=== PATIENT | female | born 1970 ===

== ENCOUNTER 2019-04-28 16:49 | Emergency (ER) | payer OTHER ==
[~2019-04-28] VITALS: Ht 177.8 cm; Wt 68.0 kg
[~2019-04-28 16:49] MED LIST: ACET-704 PO; FOLI1TAB16 PO; GABA300C18 PO; INSU100C4 SQ; INSU100V13 SQ; THIA100T57 PO; TOPI100T8 PO; TRAZ-86 PO; TRAZ300T2 PO; VENL75TA PO
[2019-04-28] MEDS ORDERED: IV NORMAL SALINE 1000ML BAG 1,000 ML IV ONE (17:00)
--- NOTE | 2019-04-28 17:05 | PHYS DOC ---
Past Medical History Past Medical History: Diabetes-Type I, Pancreatitis, Seizure ("pseudoseizure") (EDILIA JONES DO) Past Surgical History: Hysterectomy, Other Additional Past Surgical Histo: PANCREASE REMOVED; hernia repairs x 4 (EDILIA JONES DO) Smoking: Less than 1pk/day (06/13 to 06/11) Alcohol Use: Heavy Drug Use: Benzodiazepine, Marijuana (EDILIA JONES DO) Adult General Chief Complaint Chief Complaint: SEIZURE HPI HPI Patient is a 48 y/o female with a history of pseudoseizures, DM Type 1, pancreatic transplant, breast CA, who presents to the ED with a seizure prior to arrival. Seizure was witnessed, lasted 1 minute and pt endorses LOC. She states she has recently been dealing with a UTI w/ a 101 F fever and had 1.5 alcohol drinks prior to event. She says after drinking she started getting "tunnel vision" and slowly blacked out. Pt endorses that this feels like her prodromal seizure symptoms. Her previous seizure was last week and they usually occur every 4-5 months. They have been occurring more frequently due to her increased stress at her new job. Denies nausea, vomiting, diarrhea, CP, SOB. (EDILIA JONES DO) Review of Systems Review of Systems Constitutional: Reports fever Eyes: Denies redness or eye pain HENT: Denies nasal congestion or sore throat Respiratory: Denies cough or shortness of breath Cardiovascular: Denies chest pain or palpitations GI: Denies abdominal pain, nausea, or vomiting : Reports dysuria (recent UTI diagnosis) Musculoskeletal: Denies back pain or joint pain Integument: Denies rash or skin lesions Neurologic: Reports seizure w/ LOC Complete systems were reviewed and found to be within normal limits, except as documented in this note. (EDILIA JONES DO) Current Medications Current Medications Current Medications Medications (Trade) Dose Ordered Sig/Anna Start Time Stop Time Status Last Admin Dose Admin Dexamethasone Sodium Phosphate (Decadron) 20 mg STK-MED ONCE 04/28/19 17:36 04/28/19 17:37 DC Diphenhydramine HCl (Benadryl) 25 mg 1X ONCE 04/28/19 18:00 04/28/19 18:01 DC 04/28/19 17:38 25 MG Ondansetron HCl (Zofran) 4 mg 1X ONCE 04/28/19 17:15 04/28/19 17:16 DC 04/28/19 17:27 4 MG Sodium Chloride 1,000 ml @ 1,000 mls/hr 1X ONCE 04/28/19 17:00 04/28/19 17:59 DC 04/28/19 17:21 1,000 MLS/HR (ARYAN RUIZ MD) Allergies Allergies Allergies Coded Allergies Type Severity Reaction Last Updated Verified Sulfa (Sulfonamide Antibiotics) Allergy Intermediate 07/14/15 Yes latex Allergy Intermediate 07/14/15 Yes ondansetron Allergy Mild RASH/HIVES 04/28/19 Yes (ARYAN RUIZ MD) Physical Exam Physical Exam Constitutional: Well developed, well nourished, no acute distress, non-toxic appearance HENT: Normocephalic, atraumatic, oropharynx moist, tongue normal Eyes: PERRL, EOMI, conjunctiva normal, no discharge Cardiovascular: Heart rate normal, regular rhythm Lungs & Thorax: Bilateral breath sounds clear to auscultation, no wheezing Abdomen: Soft, no tenderness Skin: Warm, dry, no erythema, no rash Extremities: No tenderness, ROM intact, no edema Neurologic: Alert and oriented X 3, normal motor function, normal sensory function, no focal deficits noted, CN II-XI intact Psychologic: Affect normal, judgement normal (EDILIA JONES DO) Current Patient Data Vital Signs Vital Signs Date Time Temp Pulse Resp B/P (MAP) Pulse Ox O2 Delivery O2 Flow Rate FiO2 04/28/19 16:49 97.9 68 20 125/68 (87) 99 Room Air 97.9 (ARYAN RUIZ MD) Lab Values Laboratory Tests Test 04/28/19 17:24 04/28/19 17:31 04/28/19 18:05 White Blood Count 10.8 x10^3/uL (4.0-11.0) Red Blood Count 5.00 x10^6/uL (3.50-5.40) Hemoglobin 15.5 g/dL (12.0-15.5) Hematocrit 46.6 % (36.0-47.0) Mean Corpuscular Volume 93 fL (79-100) Mean Corpuscular Hemoglobin 31 pg (25-35) Mean Corpuscular Hemoglobin Concent 33 g/dL (31-37) Red Cell Distribution Width 13.8 % (11.5-14.5) Platelet Count 225 x10^3/uL (140-400) Neutrophils (%) (Auto) 65 % (31-73) Lymphocytes (%) (Auto) 24 % (24-48) Monocytes (%) (Auto) 4 % (0-9) Eosinophils (%) (Auto) 6 % (0-3) H Basophils (%) (Auto) 1 % (0-3) Neutrophils # (Auto) 7.0 x10^3/uL (1.8-7.7) Lymphocytes # (Auto) 2.7 x10^3/uL (1.0-4.8) Monocytes # (Auto) 0.5 x10^3/uL (0.0-1.1) Eosinophils # (Auto) 0.7 x10^3/uL (0.0-0.7) Basophils # (Auto) 0.1 x10^3/uL (0.0-0.2) Lactic Acid Level 3.1 mmol/L (0.4-2.0) H Ethyl Alcohol Level 10 mg/dL (0-10) Urine Collection Type Unknown Urine Color [place] Urine Clarity Cloudy Urine pH Urine Specific [place] Urine Protein mg/dL (NEG-TRACE) Urine Glucose (UA) mg/dL (NEG) Urine Ketones (Stick) mg/dL (NEG) Urine Blood (NEG) Urine Nitrite (NEG) Urine Bilirubin (NEG) Urine Urobilinogen Dipstick mg/dL (0.2 mg/dL) Urine Leukocyte Esterase (NEG) Urine RBC Occ /HPF (0-2) Urine WBC 1-4 /HPF (0-4) Urine Squamous Epithelial Cells Mod /LPF Urine Bacteria Few /HPF (0-FEW) Urine Mucus Mod /LPF Urine Opiates Screen Pos (NEG) Urine Methadone Screen Neg (NEG) Urine Barbiturates Neg (NEG) Urine Phencyclidine Screen Neg (NEG) Urine Amphetamine/Methamphetamine Neg (NEG) Urine Benzodiazepines Screen Pos (NEG) Urine Cocaine Screen Neg (NEG) Urine Cannabinoids Screen Pos (NEG) Urine Ethyl Alcohol Pos (NEG) Sodium Level 140 mmol/L (136-145) Potassium Level 4.5 mmol/L (3.5-5.1) Chloride Level 103 mmol/L (98-107) Carbon Dioxide Level 25 mmol/L (21-32) Anion Gap 12 (6-14) Blood Urea Nitrogen 14 mg/dL (7-20) Creatinine 1.0 mg/dL (0.6-1.0) Estimated GFR (Cockcroft-Gault) 59.7 BUN/Creatinine Ratio 14 (6-20) Glucose Level 155 mg/dL (70-99) H Calcium Level 8.9 mg/dL (8.5-10.1) Magnesium Level 1.9 mg/dL (1.8-2.4) Total Bilirubin 0.3 mg/dL (0.2-1.0) Aspartate Amino Transferase (AST) 25 U/L (15-37) Alanine Aminotransferase (ALT) 26 U/L (14-59) Alkaline Phosphatase 100 U/L (46-116) Creatine Kinase 76 U/L (26-192) Total Protein 7.4 g/dL (6.4-8.2) Albumin 3.7 g/dL (3.4-5.0) Albumin/Globulin Ratio 1.0 (1.0-1.7) Laboratory Tests 04/28/19 17:24 Laboratory Tests 04/28/19 18:05 (ARYAN RUIZ MD) Lab Values Laboratory Tests Test 04/28/19 17:24 04/28/19 17:31 04/28/19 18:05 White Blood Count 10.8 x10^3/uL (4.0-11.0) Red Blood Count 5.00 x10^6/uL (3.50-5.40) Hemoglobin 15.5 g/dL (12.0-15.5) Hematocrit 46.6 % (36.0-47.0) Mean Corpuscular Volume 93 fL (79-100) Mean Corpuscular Hemoglobin 31 pg (25-35) Mean Corpuscular Hemoglobin Concent 33 g/dL (31-37) Red Cell Distribution Width 13.8 % (11.5-14.5) Platelet Count 225 x10^3/uL (140-400) Neutrophils (%) (Auto) 65 % (31-73) Lymphocytes (%) (Auto) 24 % (24-48) Monocytes (%) (Auto) 4 % (0-9) Eosinophils (%) (Auto) 6 % (0-3) H Basophils (%) (Auto) 1 % (0-3) Neutrophils # (Auto) 7.0 x10^3/uL (1.8-7.7) Lymphocytes # (Auto) 2.7 x10^3/uL (1.0-4.8) Monocytes # (Auto) 0.5 x10^3/uL (0.0-1.1) Eosinophils # (Auto) 0.7 x10^3/uL (0.0-0.7) Basophils # (Auto) 0.1 x10^3/uL (0.0-0.2) Lactic Acid Level 3.1 mmol/L (0.4-2.0) H Ethyl Alcohol Level 10 mg/dL (0-10) Urine Collection Type Unknown Urine Color [place] Urine Clarity Cloudy Urine pH Urine Specific [place] Urine Protein mg/dL (NEG-TRACE) Urine Glucose (UA) mg/dL (NEG) Urine Ketones (Stick) mg/dL (NEG) Urine Blood (NEG) Urine Nitrite (NEG) Urine Bilirubin (NEG) Urine Urobilinogen Dipstick mg/dL (0.2 mg/dL) Urine Leukocyte Esterase (NEG) Urine RBC Occ /HPF (0-2) Urine WBC 1-4 /HPF (0-4) Urine Squamous Epithelial Cells Mod /LPF Urine Bacteria Few /HPF (0-FEW) Urine Mucus Mod /LPF Urine Opiates Screen Pos (NEG) Urine Methadone Screen Neg (NEG) Urine Barbiturates Neg (NEG) Urine Phencyclidine Screen Neg (NEG) Urine Amphetamine/Methamphetamine Neg (NEG) Urine Benzodiazepines Screen Pos (NEG) Urine Cocaine Screen Neg (NEG) Urine Cannabinoids Screen Pos (NEG) Urine Ethyl Alcohol Pos (NEG) Sodium Level 140 mmol/L (136-145) Potassium Level 4.5 mmol/L (3.5-5.1) Chloride Level 103 mmol/L (98-107) Carbon Dioxide Level 25 mmol/L (21-32) Anion Gap 12 (6-14) Blood Urea Nitrogen 14 mg/dL (7-20) Creatinine 1.0 mg/dL (0.6-1.0) Estimated GFR (Cockcroft-Gault) 59.7 BUN/Creatinine Ratio 14 (6-20) Glucose Level 155 mg/dL (70-99) H Calcium Level 8.9 mg/dL (8.5-10.1) Magnesium Level 1.9 mg/dL (1.8-2.4) Total Bilirubin 0.3 mg/dL (0.2-1.0) Aspartate Amino Transferase (AST) 25 U/L (15-37) Alanine Aminotransferase (ALT) 26 U/L (14-59) Alkaline Phosphatase 100 U/L (46-116) Creatine Kinase 76 U/L (26-192) Total Protein 7.4 g/dL (6.4-8.2) Albumin 3.7 g/dL (3.4-5.0) Albumin/Globulin Ratio 1.0 (1.0-1.7) Laboratory Tests 04/28/19 17:24 Laboratory Tests 04/28/19 18:05 (EDILIA JONES DO) EKG EKG [] (EDILIA JONES DO) Radiology/Procedures Radiology/Procedures [] (EDILIA JONES DO) Course & Med Decision Making Course & Med Decision Making Pt is a 48 y/o female with a history of pseudoseizures, breast CA w/ mastectomy, DM type 1, pancreatic transplant who presents with a seizure prior to arrival. Pt endorses LOC. Pt without post-ictal state, biting of tongue, abnormal neurologic symptoms, and urinary incontinence. Patient neurologically intact. Labs obtained and pending at this time. Sign out given to Dr. Ruiz for further evaluation and final disposition. Discussed current findings and plan with patient and friend, who acknowledge understanding and agreement. (EDILIA JONES DO) Course & Med Decision Making Labs reviewed, lactic acid mildly elevated 3.1, UDS reveals benzos, opiates, THC, alcohol. No evidence of urinary tract infection. Holter lites unremarkable. Discussed discharge plan with patient she is in agreement. We'll plan for discharge at this time with return precautions provided. Recommend follow-up primary care physician in the next 24-48 hours. (ARYAN RUIZ MD) Dragon Disclaimer Dragon Disclaimer This electronic medical record was generated, in whole or in part, using a voice recognition dictation system. (EDILIA JONES DO) Departure Departure Impression: Primary Impression: Witnessed seizure-like activity Disposition: HOME, SELF-CARE Condition: IMPROVED Referrals: NO PCP (PCP) Patient Instructions: Nonepileptic Seizures-Brief Additional Instructions: Recommend follow up with PCP 3 - 5 days Return to the ER with worsening symptoms, intractable pain, fever, altered mental status Tylenol/Motrin as needed for pain EDILIA JONES DO Apr 28, 2019 17:05 ARYAN RUIZ MD Apr 28, 2019 18:42
[2019-04-28] MEDS ORDERED: ONDANSETRON PF 4 MG/2 ML VIAL. IVP ONE (17:15)
[2019-04-28 17:30] LABS: BASO # 0.1 x10^3/uL (0.0-0.2); BASO % 1 % (0-3); EOS # 0.7 x10^3/uL (0.0-0.7); EOS % 6 % (0-3); HEMATOCRIT 46.6 % (36.0-47.0); HEMOGLOBIN 15.5 g/dL (12.0-15.5); LYMPH # 2.7 x10^3/uL (1.0-4.8); LYMPH % 24 % (24-48); MEAN CORPUSCULAR HEMOGLOBIN 31 pg (25-35); MEAN CORPUSCULAR HGB CONC 33 g/dL (31-37); MEAN CORPUSCULAR VOLUME 93 fL (79-100); MONO # 0.5 x10^3/uL (0.0-1.1); MONO % 4 % (0-9); NEUT % 65 % (31-73); PLATELET COUNT 225 x10^3/uL (140-400); RED CELL DISTRIBUTION WIDTH 13.8 % (11.5-14.5); WHITE BLOOD COUNT 10.8 x10^3/uL (4.0-11.0)
[2019-04-28] MEDS ORDERED: DEXAMETHASONE SOD PHOS 20 MG/5 ML VIAL. ONE (17:36)
[2019-04-28] MEDS ORDERED: DEXAMETHASONE SOD PHOS 4 MG/ML VIAL IVP ONE (17:45)
[2019-04-28 17:51] LABS: CLARITY,URINE CLOUDY; COLOR,URINE ORANGE
[2019-04-28 18:00] LABS: AMPHETAMINE/METHAMPHETAMINE NEG (NEG); BARBITURATES NEG (NEG); BENZODIAZEPINES POS (NEG); CANNABINOIDS POS (NEG); COCAINE NEG (NEG); METHADONE NEG (NEG); OPIATES POS (NEG); PHENCYCLIDINE NEG (NEG)
[2019-04-28] MEDS ORDERED: diphenhydrAMINE 50 MG/ML VIAL IVP ONE (18:00)
[2019-04-28 18:02] LABS: BACTERIA,URINE FEW /HPF (0-FEW); RBC,URINE OCC /HPF (0-2); SQUAMOUS EPITHELIAL CELL,UR MOD /LPF
[2019-04-28 18:17] LABS: CALCIUM 8.9 mg/dL (8.5-10.1); GFR 59.7; POTASSIUM 4.5 mmol/L (3.5-5.1)
[2019-04-28 18:23] LABS: ALBUMIN 3.7 g/dL (3.4-5.0); MAGNESIUM 1.9 mg/dL (1.8-2.4); TOTAL BILIRUBIN 0.3 mg/dL (0.2-1.0); TOTAL PROTEIN 7.4 g/dL (6.4-8.2)
[2019-04-28 18:31] VITALS: BP 127/79
== END 2019-04-28 18:47 | disposition home or self-care (01) ==
LOC: ER 16:49
DX: R56.9 Unspecified convulsions (principal); G40.509 Epileptic seizures related to external causes, not intractable, without status epilepticus; E10.8 Type 1 diabetes mellitus with unspecified complications; Z90.710 Acquired absence of both cervix and uterus; Z90.89 Acquired absence of other organs; F12.90 Cannabis use, unspecified, uncomplicated; F10.20 Alcohol dependence, uncomplicated; Y90.9 Presence of alcohol in blood, level not specified; Z87.891 Personal history of nicotine dependence; Z88.2 Allergy status to sulfonamides; Z91.040 Latex allergy status; Z88.8 Allergy status to other drugs, medicaments and biological substances
CPT/HCPCS: 36415; 80053; 80307; 81001; 82550; 83605; 83735; 85025; 96374; 96375; 99284; G0480; J1100; J1200; J2405; J7030